=== PATIENT | female | born 1995 | race Caucasian/White ===

== ENCOUNTER 2020-10-22 16:03 | Emergency (ER) | payer BC ==
[~2020-10-22] VITALS: Ht 177.8 cm; Wt 90.9 kg
[2020-10-22 17:18] LABS: COLLECTION METHOD CLEAN CATCH
[2020-10-22 18:08] LABS: MUCOUS Present /lpf; PH 6 (5-8); URINE APPEARANCE Hazy; URINE BACTERIA None Seen /hpf; URINE BILIRUBIN Negative (NEGATIVE); URINE BLOOD Negative (NEGATIVE); URINE COLOR Yellow; URINE GLUCOSE Negative (NEGATIVE); URINE KETONE Negative (NEGATIVE); URINE LEUKOCYTE ESTERASE Trace (NEGATIVE); URINE NITRATE Negative (NEGATIVE); URINE PROTEIN(semi-quant) 2+ (NEGATIVE); URINE RBC 0-2 /hpf; URINE UROBILINOGEN Negative (NEGATIVE)
[2020-10-22] MEDS ORDERED: ZITHROMAX Z PA250 MG PO (18:44)
[2020-10-22] MEDS ORDERED: ZOFRAN 4MG T4 MG/TAB PO (18:57)
[2020-10-22 19:10] VITALS: BP 116/74; PULSE 91; TEMP 98.9
== END 2020-10-22 19:10 | disposition home or self-care (01) ==
LOC: COL.ER 16:03
PROVIDERS: Nurse Practitioner Primary Care
DX: U07.1 COVID-19 (principal); J12.82 Pneumonia due to coronavirus disease 2019
CPT/HCPCS: J1885; J2405; J7030